=== PATIENT | female | born 1930 | race Caucasian/White ===

== ENCOUNTER 2018-12-25 10:26 | Inpatient (IN) ==
[2018-12-25] MEDS ORDERED: IOPAMIDOL 100 ML BOTTLE IV ONE (10:27)
--- NOTE | 2018-12-25 10:46 | Emergency Department Note ---
Lower Extremity Injury HPI - General Chief Complaint: Extremity Injury, Lower Stated Complaint: pelvic fx, significant pain Time Seen by Provider: 12/25/18 10:27 Source: patient Mode of arrival: wheelchair Limitations: no limitations - History of Present Illness HPI Narrative: This pleasant 88-year-old female was seen yesterday for inability to ambulate due to pain in the right hip and pelvic area. She had fallen the day before. CT reported initially was negative however it turns out that she did have a nondisplaced fracture of the right superior and inferior pubic rami. Today again not able to bear weight so returns to the emergency room for evaluation and/or placement. She comes from [facility]. She will need more intensive care than this level of care. Issues include pain control and therapy. In the emergency room obvious also his need for monitoring with pain medication and stabilization of this with some ice hypoxia. Today she was going from wheelchair to another chair when she was not able to bear weight and was fell without major impact. A nursing or other staff member was helping her at the time and she was able to be "letdown" to some degree not rapidly or severely but did have a mild irritation to her left kneecap. She had gotten herself into the wheelchair by herself and got into the bathroom. She was trying to get from the wheelchair to allow sure when this happened. She t ook her normal medications around 4 AM this morning. REVIEW OF SYSTEMS: No fevers or sweats but some chills. No chest pain No cough Has had little abdominal discomfort. Has nausea off and on. No vomiting. Has some chronic diarrhea. No hematochezia or melena. No dysuria Rare headaches but not now. Some mild lightheadedness. Is on sertraline. - Related Data Home Medications Medication Instructions Recorded Confirmed Omeprazole [PriLOSEC] 20 mg PO ACB 11/03/15 12/25/18 Sertraline [Zoloft] 25 mg PO DAILY 11/03/15 12/25/18 amlodipine 2.5 mg tablet 2.5 mg PO QDAY 10/09/18 12/25/18 apixaban 2.5 mg tablet 2.5 mg PO BID 10/09/18 12/25/18 calcium carbonate 600 mg calcium 1,200 mg PO QDAY tab 10/09/18 12/25/18 (1,500 mg) tablet erythromycin 5 mg/gram (0.5 %) eye 1 applic OPHTHALMIC HS 10/09/18 12/25/18 ointment furosemide 20 mg tablet 20 mg PO QAM 10/09/18 12/25/18 lidocaine 4 % topical patch 1 patch TOPICAL QDAY each 10/09/18 12/25/18 metoprolol succinate ER 50 mg 25 mg PO BID tab 10/09/18 12/25/18 tablet,extended release 24 hr potassium chloride ER 10 mEq 10 meq PO QDAY 10/09/18 12/25/18 tablet,extended release HYDROcodone/APAP 5/325MG [[place] 1 tab PO Q4HP PRN 12/25/18 12/25/18 5-325Mg] Magnesium Hydroxide [Milk of 30 ml PO DAILYP PRN 12/25/18 12/25/18 Magnesia] Melatonin [Melatonin 3Mg Tablet] 3 mg PO HS PRN 12/25/18 12/25/18 Ondansetron HCl [Zofran] 4 mg PO Q4-6H PRN 12/25/18 12/25/18 Polyethylene Glycol 3350 [Miralax] 17 gm PO DAILYP PRN 12/25/18 12/25/18 Vitamin D3 3,000 unit PO DAILY 12/25/18 12/25/18 buPROPion [Wellbutrin Sr] 150 mg PO DAILY 12/25/18 12/25/18 Allergies Allergy/AdvReac Type Severity Reaction Status Date / Time pseudoephedrine Allergy Intermediate Hives Verified 12/25/18 10:28 lansoprazole Allergy Mild HAIR LOSS Verified 12/25/18 10:28 alendronate sodium Allergy Unknown Hives Verified 12/25/18 10:28 ampicillin Allergy Unknown unknown Verified 12/25/18 10:28 fentanyl Allergy Unknown Unknown Verified 12/25/18 10:28 pregabalin Allergy Unknown Unknown Verified 12/25/18 10:28 oxycodone [OXYCODONE] AdvReac Unknown UNKNOWN Verified 12/25/18 10:28 RXN. Past Medical History - Past Medical History [facility] Narrative: Medical History (Last Updated 12/25/18 @ 14:40 by Rafael Neves DO) Chronic anticoagulation (Chronic) History of atrial fibrillation (Chronic) Hypertension (Chronic) Stenosis, spinal, lumbar (Chronic) GERD (gastroesophageal reflux disease) (Chronic) Acute thoracic back pain (Chronic) Hx of compression fracture of spine (Chronic) Nausea (Chronic) Fall (Acute) Right hip pain (Acute) Post-op bleeding (Acute) Irritable bowel syndrome with diarrhea (Chronic) Osteoporosis (Chronic) Past Surgical History (Last Updated 12/25/18 @ 14:41 by Rafael Neves DO) History of hysterectomy for benign disease (Acute) History of facial surgery (Acute) shoulder replacement knee replacement, bilat CTS Inguinal heria repair Family History (Last Updated 12/25/18 @ 14:38 by Rafael Neves DO) Other Colon cancer - Social History smoking status: Never smoker Alcohol use: Reports: None Drug use: Reports: none Physical Exam Limitations: no limitations General appearance: alert, in distress (Only if moving more touch from pressure to the right hip.) Head: atraumatic, normocephalic Eye: Present: normal appearance, EOMI. Absent: scleral icterus, conjunctival injection ENT: normal oropharynx, mucous membranes moist Neck: Present: trachea midline. Absent: lymphadenopathy, thyromegaly Chest: Present: symmetric chest wall rise Respiratory: Present: normal lung sounds bilaterally. Absent: respiratory distress, wheezes, stridor, accessory muscle use, prolonged expiratory phase Cardiovascular: Present: irregular rhythm. Absent: systolic murmur, diastolic murmur Abdominal: Present: soft. Absent: distention, tenderness, guarding, rebound, rigidity, organomegaly, mass Extremities: Present: other (Tenderness around the right lower pelvic area and hip area particularly with movement.). Absent: pedal edema, pretibial edema, calf tenderness Neurological: Present: alert, oriented X3 Psychiatric: Present: normal affect, normal mood Skin: Present: warm, dry Course Vital Signs Blood Pressure 99/65 12/25/18 10:42 Pulse Rate 94 H 12/25/18 11:01 Respiratory Rate 20 12/25/18 14:18 Blood Pressure 144/81 12/25/18 14:18 Pulse Oximetry (%) 94 12/25/18 14:18 Extremity Injury, Lower - Lab Data Lab results reviewed: Yes I reviewed the patient's lab results. Result diagrams: 12/25/18 12:16 12/25/18 12:16 Lab Results 06/17/19 06/17/19 06/17/19 Range/Units 11:35 12:16 12:16 WBC 14.1 H (4.5-11.0) K/mcL RBC 4.45 (4.00-5.20) M/mcL Hgb 13.8 (12.0-15.0) g/dL Hct 42.7 (36.0-48.0) % POC Hct 42.0 (36.0-48.0) % MCV 96.1 (80.0-100.0) fL MCH 31.0 (26.0-34.0) pg MCHC 32.2 (31.0-36.0) g/dL RDW 15.4 H (11.5-14.5) % Plt Count 145 (140-440) K/mcL MPV 10.0 (7.4-10.4) fL Gran % 86.6 H (38.0-78.0) % Lymph % (Auto) 6.2 L (15.5-49.0) % Granite % (Auto) 5.2 (1.0-12.0) % Eos % (Auto) 1.7 (0.0-7.0) % Baso % (Auto) 0.3 (0.0-2.0) % Gran # 12.2 H (1.8-8.0) K/mcL Lymph # (Auto) 0.9 L (1.5-4.8) K/mcL Granite # (Auto) 0.7 (0.1-0.9) K/mcL Eos # (Auto) 0.2 (0.0-0.7) K/mcL Baso # (Auto) 0 (0.0-0.3) K/mcL Band Neutrophils % D-Dimer (0.00-0.40) ug/ml POC Sodium 137 (133-145) mmol/L Sodium 138 (133-145) mmol/L POC Potassium 4.5 (3.3-5.1) mmol/L Potassium 4.8 (3.3-5.1) mmol/L POC Chloride 102 (96-108) mmol/L Chloride 101 (96-108) mmol/L Carbon Dioxide 18 L (22-30) mmol/L POC Total CO2 24 (22-30) mmol/L Anion Gap 19.0 H (8-16) POC BUN 23 (8-23) mg/dl BUN 17 (8-23) mg/dl Creatinine 1.2 H (0.6-1.1) mg/dl POC Creatinine 1.1 (0.6-1.1) mg/dl GFR Calculation 40 Glucose 145 H (70-105) mg/dL POC Glucose 146 H (70-105) mg/dL Calcium 9.0 (8.6-10.4) mg/dl POC WB Ioniz Calcium 1.01 L (1.16-1.32) mmol/L Total Bilirubin 1.3 H (0.0-1.0) mg/dL AST 31 (0-37) U/l ALT 16 (0-40) U/l Alkaline Phosphatase 88 (39-117) U/L Total Protein 6.6 (5.9-8.4) gm/dL Albumin 3.6 (3.2-5.2) gm/dL Globulin 3.0 (2.2-3.7) gm/dL Albumin/Globulin Ratio 1.2 (1.0-2.3) 12/25/18 12/25/18 Range/Units 13:40 14:26 WBC (4.5-11.0) K/mcL RBC (4.00-5.20) M/mcL Hgb (12.0-15.0) g/dL Hct (36.0-48.0) % POC Hct (36.0-48.0) % MCV (80.0-100.0) fL MCH (26.0-34.0) pg MCHC (31.0-36.0) g/dL RDW (11.5-14.5) % Plt Count (140-440) K/mcL MPV (7.4-10.4) fL Gran % (38.0-78.0) % Lymph % (Auto) (15.5-49.0) % Granite % (Auto) (1.0-12.0) % Eos % (Auto) (0.0-7.0) % Baso % (Auto) (0.0-2.0) % Gran # (1.8-8.0) K/mcL Lymph # (Auto) (1.5-4.8) K/mcL Granite # (Auto) (0.1-0.9) K/mcL Eos # (Auto) (0.0-0.7) K/mcL Baso # (Auto) (0.0-0.3) K/mcL Band Neutrophils % Not Reportable D-Dimer 9.39 H (0.00-0.40) ug/ml POC Sodium (133-145) mmol/L Sodium (133-145) mmol/L POC Potassium (3.3-5.1) mmol/L Potassium (3.3-5.1) mmol/L POC Chloride (96-108) mmol/L Chloride (96-108) mmol/L Carbon Dioxide (22-30) mmol/L POC Total CO2 (22-30) mmol/L Anion Gap (8-16) POC BUN (8-23) mg/dl BUN (8-23) mg/dl Creatinine (0.6-1.1) mg/dl POC Creatinine (0.6-1.1) mg/dl GFR Calculation Glucose (70-105) mg/dL POC Glucose (70-105) mg/dL Calcium (8.6-10.4) mg/dl POC WB Ioniz Calcium (1.16-1.32) mmol/L Total Bilirubin (0.0-1.0) mg/dL AST (0-37) U/l ALT (0-40) U/l Alkaline Phosphatase (39-117) U/L Total Protein (5.9-8.4) gm/dL Albumin (3.2-5.2) gm/dL Globulin (2.2-3.7) gm/dL Albumin/Globulin Ratio (1.0-2.3) - Radiology Data Radiology results reviewed: Yes I reviewed the patient's radiology results. - EKG Data EKG results narrative: No acute coronary syndrome findings. Similar to previous with atrial fibrillation. This ECG will be read by a lap winding machine operator. Disposition Pt seen by [facility]/PA only: No Clinical Impression: Hypoxia, Irritable bowel syndrome with diarrhea Pelvic fracture Qualifiers: Encounter type: subsequent encounter Pelvic bone location: pubis Sublocation of pubis: unspecified portion of pubis Fracture type: closed Laterality: right Fracture healing: with routine healing Qualified Code(s): S32.501D - Unspecified fracture of right pubis, subsequent encounter for fracture with routine healing Atrial fibrillation Qualifiers: Atrial fibrillation type: chronic Qualified Code(s): I48.2 - Chronic atrial fibrillation Summary: See history above. In summary, needs admission for pain control, treatment and/or stabilization of her medication regimen especially in light of hypoxia and narcotic need because of pelvic fracture, as well as placement in a facility that can care for her and help her in rehabilitation in preparation for return to her apartment more independently. 2:35 PM - spoke with Dr. Leigh, hospitalist, who kindly accepts this patient for above. Disposition: Xfer As Outpt/Obs ([facility]) Condition: Fair Referrals: Oren Neely MD [Primary Care Provider] -
[2018-12-25 11:45] LABS: POC Blood Urea Nitrogen 23 mg/dl (8-23); POC CO2 24 mmol/L (22-30); POC Calcium, Ionized 1.01 mmol/L (1.16-1.32); POC Chloride 102 mmol/L (96-108); POC Creatinine 1.1 mg/dl (0.6-1.1); POC Glucose, Random 146 mg/dL (70-105); POC Potassium 4.5 mmol/L (3.3-5.1); POC Sodium 137 mmol/L (133-145)
[2018-12-25] MEDS ORDERED: 0.9 % SODIUM CHLORIDE 1,000 ML IV ONE (12:00)
--- NOTE | 2018-12-25 12:42 | XRay Report ---
HISTORY: Pelvic fractures and fell again FINDINGS: There are stable nondisplaced fractures of the right superior ischial ramus and right inferior pubic ramus. There is also deformity of the left pubic bone which may be an old healed fracture. The bones are osteoporotic. SI joints appear normal. There are postoperative changes following spinal fusion at L5-S1 using bone graft material and metal screws and plates. Comparison with the pelvic CT scan performed on 12/24/18 shows no change. The hip joints appear normal and symmetric, without evidence of a fracture or arthritis. IMPRESSION: Stable fractures involving the right-sided ischial and pubic rami and left pubic bone Interpreted and Authenticated by: Cecil Kiran 12/25/18
[2018-12-25 12:45] LABS: Basophils # (Auto) 0 K/mcL (0.0-0.3); Basophils % (Auto) 0.3 % (0.0-2.0); Eosinophils # (Auto) 0.2 K/mcL (0.0-0.7); Eosinophils % (Auto) 1.7 % (0.0-7.0); Granulocytes % (Auto) 86.6 % (38.0-78.0); Hematocrit 42.7 % (36.0-48.0); Hemoglobin 13.8 g/dL (12.0-15.0); Lymphocytes # (Auto) 0.9 K/mcL (1.5-4.8); Lymphocytes % (Auto) 6.2 % (15.5-49.0); Mean Cell Volume 96.1 fL (80.0-100.0); Mean Corpuscular HGB Conc 32.2 g/dL (31.0-36.0); Monocytes # (Auto) 0.7 K/mcL (0.1-0.9); Monocytes % (Auto) 5.2 % (1.0-12.0); Platelet Count 145 K/mcL (140-440); RBC 4.45 M/mcL (4.00-5.20); Red Cell Distribution Width 15.4 % (11.5-14.5); WBC 14.1 K/mcL (4.5-11.0)
[2018-12-25 12:57] LABS: ALT/SGPT 16 U/l (0-40); AST/SGOT 31 U/l (0-37); Albumin 3.6 gm/dL (3.2-5.2); Albumin/Globulin Ratio 1.2 (1.0-2.3); Alkaline Phosphatase 88 U/L (39-117); Bilirubin,Total 1.3 mg/dL (0.0-1.0); Blood Urea Nitrogen 17 mg/dl (8-23); Carbon Dioxide 18 mmol/L (22-30); Chloride 101 mmol/L (96-108); Glomerular Filtration Rate 40; Glucose 145 mg/dL (70-105); Potassium 4.8 mmol/L (3.3-5.1); Sodium 138 mmol/L (133-145)
--- NOTE | 2018-12-25 13:00 | XRay Report ---
HISTORY: Hypoxia FINDINGS: The lungs are clear and well expanded. The heart is mildly enlarged but magnified by AP technique. There is no congestive heart failure or pleural effusion. There is cement in several thoracic vertebra following prior kyphoplasty' s. 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 No prior study is available for comparison. IMPRESSION: Borderline cardiomegaly and no acute abnormality Interpreted and Authenticated by: Cecil Kiran 12/25/18
--- NOTE | 2018-12-25 15:08 | Internal Med History&Physical ---
Medical - H&P: HPI Patient information: Note initiated : 12/25/18 at 3:03 pm Service Date, if different from initiated Date: [] Patient: Nenita Dee a 88 y/o F admitted on for pelvic fx, significant pain. Chief Complaint: [] History of present illness: Ms. Dee is a 88 year old F Who presents from assisted living facility for another fall generalized weakness. Patient originally fell 2 days ago. She was walking to her chair in her room and she suddenly fell. She does not recall what happened whether not she tripped or lost balance. She is no reported loss of consciousness. She did hit her head apparently. 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 She has tremendous amount of bruising on her left side because of procedure. In the ED she had imaging done including CT head and pelvis. CT head was unremarkable pelvis showed nondisplaced fractures through the right superior p ubic ramus in the mid right inferior. She was sent home with a follow-up to see orthopedic surgery. However she fell again this morning. Had a pelvic x-ray which showed stable fractures. She is also noted to be hypoxic. ABG on 4 L with a PaO2 of 79. I put her on room air and 1 of her fingers showed a sat of 85 but the other hand showed sats of 89. Placed on 2 L and she sat at 93%. She denies any coughing or upper respiratory tract infection, denies shortness of breath. Denies fever chills or dysuria. She did have an episode of diarrhea, C. difficile negative in the ER. Family states she has intermittent diarrhea is common for her. Patient unable to care for herself and needs really have as well as evaluation of her hypoxia. She does have a leukocytosis as well this can be reactive but infectious work-up not completed yet. Urinalysis pending Review of Systems: Pertinent positives as above. Denies headache/fever/chills/nausea/vomiting/chest or abdominal pain/cough/dyspnea. 10 point review of system reviewed negative Medical - H&P: PMH Medical history: Medical History (Last Updated 12/25/18 @ 14:40 by Rafael Neves DO) Chronic anticoagulation (Chronic) History of atrial fibrillation (Chronic) Hypertension (Chronic) Stenosis, spinal, lumbar (Chronic) GERD (gastroesophageal reflux disease) (Chronic) Acute thoracic back pain (Chronic) Hx of compression fracture of spine (Chronic) Nausea (Chronic) Fall (Acute) Right hip pain (Acute) Post-op bleeding (Acute) Irritable bowel syndrome with diarrhea (Chronic) Osteoporosis (Chronic) Past Surgical History (Last Updated 12/25/18 @ 14:41 by Rafael Neves DO) History of hysterectomy for benign disease (Acute) History of facial surgery (Acute) Family History (Last Updated 12/25/18 @ 14:38 by Rafael Neves DO) Other Colon cancer Mother hypertension Father diabetes Social History (Last Updated 10/10/18 @ 09:34 by Lorraine Malave DO) Patient resides at assisted living facility at [facility] Drinks alcohol rarely Ablates with a walker Denies tobacco use Medical - H&P: Meds Home Medications Medication Instructions Recorded Confirmed Type Omeprazole [PriLOSEC] 20 mg PO ACB 11/03/15 12/25/18 History Sertraline [Zoloft] 25 mg PO DAILY 11/03/15 12/25/18 History amlodipine 2.5 mg tablet 2.5 mg PO QDAY 10/09/18 12/25/18 History apixaban 2.5 mg tablet 2.5 mg PO BID 10/09/18 12/25/18 History calcium carbonate 600 mg calcium 1,200 mg PO QDAY tab 10/09/18 12/25/18 History (1,500 mg) tablet erythromycin 5 mg/gram (0.5 %) eye 1 applic OPHTHALMIC HS 10/09/18 12/25/18 History ointment furosemide 20 mg tablet 20 mg PO QAM 10/09/18 12/25/18 History lidocaine 4 % topical patch 1 patch TOPICAL QDAY each 10/09/18 12/25/18 History metoprolol succinate ER 50 mg 25 mg PO BID tab 10/09/18 12/25/18 History tablet,extended release 24 hr potassium chloride ER 10 mEq 10 meq PO QDAY 10/09/18 12/25/18 History tablet,extended release HYDROcodone/APAP 5/325MG [[place] 1 tab PO Q4HP PRN 12/25/18 12/25/18 History 5-325Mg] Magnesium Hydroxide [Milk of 30 ml PO DAILYP PRN 12/25/18 12/25/18 History Magnesia] Melatonin [Melatonin 3Mg Tablet] 3 mg PO HS PRN 12/25/18 12/25/18 History Ondansetron HCl [Zofran] 4 mg PO Q4-6H PRN 12/25/18 12/25/18 History Polyethylene Glycol 3350 [Miralax] 17 gm PO DAILYP PRN 12/25/18 12/25/18 History Vitamin D3 3,000 unit PO DAILY 12/25/18 12/25/18 History buPROPion [Wellbutrin Sr] 150 mg PO DAILY 12/25/18 12/25/18 History Allergies Allergy/AdvReac Type Severity Reaction Status Date / Time pseudoephedrine Allergy Intermediate Hives Verified 12/25/18 10:28 lansoprazole Allergy Mild HAIR LOSS Verified 12/25/18 10:28 alendronate sodium Allergy Unknown Hives Verified 12/25/18 10:28 ampicillin Allergy Unknown unknown Verified 12/25/18 10:28 fentanyl Allergy Unknown Unknown Verified 12/25/18 10:28 pregabalin Allergy Unknown Unknown Verified 12/25/18 10:28 oxycodone [OXYCODONE] AdvReac Unknown UNKNOWN Verified 12/25/18 10:28 RXN. Medical - H&P: Exam - Constitutional Vitals: Pulse Resp BP Pulse Ox 94 H 20 144/81 94 12/25/18 11:01 12/25/18 14:18 12/25/18 14:18 12/25/18 14:18 Exam: General: Alert, Awake, No acute Distress Eyes/N/T: EOMI, PEERL, DMM Head/Neck: neck supple, significant bruising of lower left face from procedure, surgical incision stitches right side of face and her ear CV: Irregular irregular, No murmurs, normal s1/s2 Pulm: Clear b/l, no wheezing/rhonchi/rales Abd: soft, nontender, +BS x4 Ext: no clubbing/cyanosis/edema Neuro: Alert, no focal deficits, moves all extremities, CN 2-12 grossly intact, sensations intact b/l upper/lower Skin: warm/dry Medical - H&P: Reslt - Labs CBC & Chem 7: 12/25/18 12:16 12/25/18 12:16 Labs: Short CBC 12/25/18 Range/Units 12:16 WBC 14.1 H (4.5-11.0) K/mcL Hgb 13.8 (12.0-15.0) g/dL Hct 42.7 (36.0-48.0) % Plt Count 145 (140-440) K/mcL BMP 12/25/18 12:16 Sodium 138 Potassium 4.8 Chloride 101 Carbon Dioxide 18 L BUN 17 Creatinine 1.2 H Glucose 145 H Calcium 9.0 Liver Function 12/25/18 Range/Units 12:16 Total Bilirubin 1.3 H (0.0-1.0) mg/dL AST 31 (0-37) U/l ALT 16 (0-40) U/l Alkaline Phosphatase 88 (39-117) U/L Albumin 3.6 (3.2-5.2) gm/dL - Impressions Chest x-ray unremarkable Medical - H&P: A/P - Narrative A/P Narrative: A: *Pelvic fracture, nondisplaced: Ground-level fall *Generalized weakness/deconditioning/debility: *Hypoxia: Suspect atelectasis +/- narcotics -CT pending *CKD III: *AFib: on BB and apixaban *HTN: CCB/BB *chronic LBP: Follows with Dr. Peterson and *Depression: *GERD *on lasix for peripheral edema: only started 4 mos ago * P: -CT chest pending -IS, prn nebs -check UA and manual differential -pain control -PT/OT - - -Case management for placement -ppx: Eliquis/home PPI No Code
[2018-12-25 15:27] LABS: Band Neutrophils % 1 % (0-10); Eosinophils % (Manual) 1 % (0-7); Lymphocytes % 7 % (15-49); Monocytes % (Manual) 11 % (1-12); Platelet Estimate NORMAL (NORMAL); RBC Morphology NORMAL (NORMAL); Segmented Neutrophils % 80 % (38-78)
--- NOTE | 2018-12-25 16:02 | Cat Scan Report ---
CLINICAL INFORMATION: Hypoxia and elevated serum d-dimer COMPARISON: None TECHNIQUE: Axial images obtained through the chest. Intravenous contrast administration was administered, and scanning was performed during pulmonary arterial phase. Sagittally and coronally reformatted images were obtained. MIP reformatted images. Radiation exposure was limited using dose reduction technology. FINDINGS: Within the proximal portion of pulmonary artery supplying the lingula there is nonocclusive small organized thrombus. It measures approximately 1.5 cm in length and 3 to 4 mm in thickness. There is no evidence of acute pulmonary embolus. The main pulmonary artery is normal in caliber. Right ventricle is not abnormally dilated. Patient does have underlying generalized cardiomegaly. Minor atelectasis is present posteriorly in both lung bases. There is also bronchial wall thickening is some of the second and third order branches in the left lung. Some of the basilar segments of the left lower lobe there is mucus plugging causing short segment bronchial occlusions. No pulmonary mass is seen. There is no lobar consolidation. Tiny bilateral layering pleural effusions are present. There are couple reactive lymph nodes in the pretracheal retrocaval space and mediastinum. Patient has severe osteoporosis and kyphosis. There are numerous compression fractures. Most severe compression fractures at T6. This is unchanged since prior thoracic MRI done on 08/31/18. A moderate wedge compression fractures present at T7. Kyphoplasties have been performed at T9 T11 and T12. There is another moderate compression fracture involving superior endplate of T10. The kyphoplasty's have been performed since the prior thoracic MRI. The T7 fracture is new and the T10 fracture has become worse. There is a 1.2 cm low-attenuation nodule in the right lobe of the thyroid. This could be an adenoma or colloid cyst. IMPRESSION: Small organized thrombus in the lingula. No evidence of acute pulmonary emboli Inflammatory airway disease with bronchial wall thickening and focal areas of mucus plugging. There is associated mild atelectasis in the basilar segments Numerous compression fractures in the thoracic spine. Some of these have become worse since 08/31/18 Interpreted and Authenticated by: Cecil Kiran 12/25/18
[2018-12-25 16:46] LABS: Appearance,Urine CLOUDY; Bacteria,Urine 0 /hpf (0); Bilirubin,Urine NEG (NEG); Color,Urine YELLOW; Culture Indicated,Urine YES; Glucose,Urine (UA) NEGATIVE (NEG); Ketones,Urine NEG (NEG); Leukocyte Esterase,Urine 25 /uL (NEG); Mucus,Urine MANY /hpf (0); Nitrate,Urine NEG (NEG); Protein,Urine 30 mg/dL (NEG); Specific Gravity,Urine 1.031 (1.000-1.035); Urine Blood 0.03 mg/dL (<0.03); Urine Budding Yeast MANY /hpf (0); Urine Hyaline Cast 37 /lpf (0-2); Urine RBC 0 /hpf (0-1); Urine Squamous Epithelial Cell 1 /hpf (0-4); Urine WBC 4 /hpf (0-4)
[2018-12-25] MEDS ORDERED: IPRATROPIUM/ALBUTEROL 3 ML AMPUL.NEB NEB PRN (16:59)
[2018-12-25] MEDS ORDERED: LOPERAMIDE 2 MG CAPSULE PO PRN (16:59)
[2018-12-25] MEDS ORDERED: IPRATROPIUM/ALBUTEROL 3 ML AMPUL.NEB NEB SCH (16:59)
[2018-12-25] MEDS ORDERED: PROCHLORPERAZINE 10 MG/2 ML VIAL IV PRN (16:59)
[2018-12-25] MEDS ORDERED: MAGNESIUM HYDROXIDE 30 ML ORAL.SUSP PO PRN (16:59)
[2018-12-25] MEDS ORDERED: POLYETHYLENE GLYCOL 3350 17 GM PACKET PO PRN (16:59)
[2018-12-25] MEDS ORDERED: ACETAMINOPHEN 325 MG TABLET PO PRN (16:59)
[2018-12-25] MEDS ORDERED: 0.9 % SODIUM CHLORIDE 1,000 ML IV SCH (16:59)
[2018-12-25] MEDS ORDERED: ONDANSETRON 4 MG/2 ML VIAL IV PRN (16:59)
[2018-12-25] MEDS: HYDROcodone/APAP 5/325MG TABLET PO PRN ×2 (18:15→22:54)
[2018-12-25] MEDS: APIXABAN 2.5 MG TABLET PO SCH (19:55)
[2018-12-25] MEDS: METOPROLOL SUCCINATE 25 MG TAB.XL.24H PO SCH (19:56)
[2018-12-25] MEDS: ERYTHROMYCIN OPHTH OINT 3.5GM TUBE OU SCH (19:56)
[2018-12-25] MEDS ORDERED: MELATONIN 3 MG TABLET PO PRN (21:00)
[2018-12-26] MEDS: 0.9 % SODIUM CHLORIDE 10 ML SYRINGE IV SCH ×4 (00:18→20:58)
[2018-12-26 05:41] LABS: Basophils # (Auto) 0.1 K/mcL (0.0-0.3); Basophils % (Auto) 0.5 % (0.0-2.0); Eosinophils # (Auto) 0.7 K/mcL (0.0-0.7); Eosinophils % (Auto) 6.9 % (0.0-7.0); Hematocrit 38.3 % (36.0-48.0); Hemoglobin 12.3 g/dL (12.0-15.0); Lymphocytes # (Auto) 1.2 K/mcL (1.5-4.8); Lymphocytes % (Auto) 11.5 % (15.5-49.0); Mean Cell Volume 97.5 fL (80.0-100.0); Mean Platelet Volume 10.8 fL (7.4-10.4); Monocytes # (Auto) 0.6 K/mcL (0.1-0.9); Monocytes % (Auto) 6.1 % (1.0-12.0); Platelet Count 126 K/mcL (140-440); RBC 3.93 M/mcL (4.00-5.20); WBC 10.3 K/mcL (4.5-11.0)
[2018-12-26 06:03] LABS: ALT/SGPT 18 U/l (0-40); AST/SGOT 21 U/l (0-37); Albumin 3.4 gm/dL (3.2-5.2); Albumin/Globulin Ratio 1.3 (1.0-2.3); Alkaline Phosphatase 83 U/L (39-117); Bilirubin,Direct 0.3 mg/dL (0.0-0.3); Blood Urea Nitrogen 18 mg/dl (8-23); Calcium 8.7 mg/dl (8.6-10.4); Carbon Dioxide 23 mmol/L (22-30); Chloride 102 mmol/L (96-108); Globulin 2.6 gm/dL (2.2-3.7); Glomerular Filtration Rate 65; Glucose 120 mg/dL (70-105); Lactate Dehydrogenase 241 U/L (94-250); Magnesium 1.8 mg/dL (1.6-2.5); Phosphorous 3.4 mg/dL (2.7-4.5); Sodium 139 mmol/L (133-145); Triglycerides 96 mg/dl (<150); Uric Acid 4.6 mg/dL (2.5-8.0)
[2018-12-26] MEDS ORDERED: methylPREDNISolone SOD SUCC 125 MG/2 ML VIAL IV ONE (07:11)
--- NOTE | 2018-12-26 07:12 | Internal Med Progress Note ---
Medical - PN: Subj Patient information: Note initiated : 12/26/18 at 7:05 am Service Date, if different from initiated Date: [] Patient: Nenita Dee a 88 y/o F admitted on 12/25/18 for pelvic fx, significant pain. Chief Complaint: [] Interval history: Ms. Dee is a 88 year old F Who presents from assisted living facility for another fall generalized weakness. Patient originally fell 2 days ago. She was walking to her chair in her room and she suddenly fell. She does not recall what happened whether not s he tripped or lost balance. She is no reported loss of consciousness. She did hit her head apparently. 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 She has tremendous amount of bruising on her left side because of procedure. In the ED she had imaging done including CT head and pelvis. CT head was unremarkable pelvis showed nondisplaced fractures through the right superior pu bic ramus in the mid right inferior. She was sent home with a follow-up to see orthopedic surgery. However she fell again this morning. Had a pelvic x-ray which showed stable fractures. She is also noted to be hypoxic. ABG on 4 L with a PaO2 of 79. I put her on room air and 1 of her fingers showed a sat of 85 but the other hand showed sats of 89. Placed on 2 L and she sat at 93%. She denies any coughing or upper respiratory tract infection, denies shortness of breath. Denies fever chills or dysuria. She did have an episode of diarrhea, C. difficile negative in the ER. Family states she has intermittent diarrhea is common for her. Patient unable to care for herself and needs really have as well as evaluation of her hypoxia. She does have a leukocytosis as well this can be reactive but infectious work-up not completed yet. Urinalysis pending 12/25 Slept okay, feeling a little better. No overnight events. Currently on 1 L nasal cannula. Some nausea this morning but otherwise no new complaints. Review of Systems: denies headache/fever/chills/vomiting/chest or abdominal pain/cough/dyspnea/diarrhea. Otherwise see above. - Constitutional Vitals: Vital Signs Temp Pulse Resp BP Pulse Ox 98.3 F 91 H 12 142/90 91 12/25/18 23:51 12/25/18 23:51 12/26/18 03:11 12/26/18 03:11 12/26/18 03:11 Period Temp Pulse Resp BP Sys/García Pulse Ox Last 24 Hr 98.2 F-99.5 F 91-104 12-22 99-154/58-98 87-97 Intake and Output 12/25/18 12/26/18 12/26/18 21:59 05:59 13:59 Intake Total 1560 100 Output Total 375 Balance 1560 -275 Weight 67.132 kg Intake & Output: Intake & Output 12/25/18 12/26/18 12/26/18 21:59 05:59 13:59 Intake Total 1560 100 Output Total 375 Balance 1560 -275 Weight 67.132 kg Intake: IV 1000 Sodium Chloride 0.9% 1,000 ml @ 1000 Wide Open IV BOLUS ONE Rx#: [id number] Oral 560 100 Output: Urine Catheter Amount 375 Other: Meal Dinner Percent of Meal Consumed 50% Feeding Ability Independent Urine Appearance Clear Uretheral ([place]) Clear Urine Color Dark Yellow Uretheral ([place]ell) Bright Yellow Exam: General: Alert, Awake, No acute Distress Eyes/N/T: EOMI, Head/Neck: neck supple, significant bruising of lower left face from procedure, surgical incision stitches right side of face and her ear CV: Irregular irregular, No murmurs, Pulm: Clear b/l, no wheezing/rhonchi/rales Abd: soft, nontender, +BS x4 Ext: no clubbing/cyanosis/edema Neuro: Alert, no focal deficits, moves all extremities, Skin: warm/dry Medical - PN: Obj Da - Labs CBC & Chem 7: 12/26/18 03:57 12/26/18 03:57 Labs: Abnormal Lab Results 12/26/18 12/26/18 12/25/18 03:57 03:57 16:00 WBC RBC 3.93 L RDW 16.0 H Plt Count 126 L MPV 10.8 H Gran % Lymph % (Auto) 11.5 L Gran # Lymph # (Auto) 1.2 L Seg Neutrophils % Lymphocytes % D-Dimer Carbon Dioxide Anion Gap Creatinine Glucose 120 H POC Glucose POC WB Ioniz Calcium Total Bilirubin Urine Protein 30 A Urine Occult Blood 0.03 A Urine Urobilinogen 2.0 A Ur Leukocyte Esterase 25 A Hyaline Casts 37 H Urine Mucus Many A Urine Yeast (Budding) Many A 12/25/18 12/25/18 12/25/18 14:26 13:40 12:16 WBC RBC RDW Plt Count MPV Gran % Lymph % (Auto) Gran # Lymph # (Auto) Seg Neutrophils % 80 H Lymphocytes % 7 L D-Dimer 9.39 H Carbon Dioxide 18 L Anion Gap 19.0 H Creatinine 1.2 H Glucose 145 H POC Glucose POC WB Ioniz Calcium Total Bilirubin 1.3 H Urine Protein Urine Occult Blood Urine Urobilinogen Ur Leukocyte Esterase Hyaline Casts Urine Mucus Urine Yeast (Budding) 12/25/18 12/25/18 12:16 11:35 WBC 14.1 H RBC RDW 15.4 H Plt Count MPV Gran % 86.6 H Lymph % (Auto) 6.2 L Gran # 12.2 H Lymph # (Auto) 0.9 L Seg Neutrophils % Lymphocytes % D-Dimer Carbon Dioxide Anion Gap Creatinine Glucose POC Glucose 146 H POC WB Ioniz Calcium 1.01 L Total Bilirubin Urine Protein Urine Occult Blood Urine Urobilinogen Ur Leukocyte Esterase Hyaline Casts Urine Mucus Urine Yeast (Budding) Meds: Medications Acetaminophen (Tylenol) 650 mg PO Q6HP PRN PRN Reason: PAIN/FEVER > 101 Hydrocodone Bitart/Acetaminophen ([place] 5/325mg) 1 tab PO Q4HP PRN PRN Reason: Pain Last Admin: 12/25/18 22:54 Dose: 1 tab Documented by: Albuterol/Ipratropium (Duoneb) 3 ml NEB Q4HRT PRN PRN Reason: Bronchospasm Albuterol/Ipratropium (Duoneb) 3 ml NEB Q6HP KENDRA Amlodipine Besylate (Norvasc) 2.5 mg PO QDAY [facility] Apixaban (Eliquis) 2.5 mg PO BID [facility] Last Admin: 12/25/18 19:55 Dose: 2.5 mg Documented by: Bupropion HCl (Wellbutrin Xl) 150 mg PO DAILY [facility] Calcium Carbonate/Glycine (Tums) 1,000 mg CHEWED DAILY [facility] Erythromycin (Ilotycin Ophth Oint) 1 ribbon OU HS [facility] Last Admin: 12/25/18 19:56 Dose: Not Given Documented by: Sodium Chloride (Sodium Chloride 0.9%) 1,000 mls @ 70 mls/hr IV .[id number] [facility] Stop: 12/26/18 07:16 Last Admin: 12/25/18 17:22 Dose: 70 mls/hr Documented by: Lidocaine (Lidoderm) 1 patch TOPICAL DAILY@1000 KENDRA Loperamide HCl (Imodium) 2 mg PO PRN PRN PRN Reason: Diarrhea Magnesium Hydroxide (Milk Of Magnesia) 30 ml PO DAILYP PRN PRN Reason: Constipation Melatonin (Melatonin 3mg Tablet) 3 mg PO HSP PRN PRN Reason: Insomnia Metoprolol Succinate (Toprol Xl) 25 mg PO BID [facility] Last Admin: 12/25/18 19:56 Dose: 25 mg Documented by: Omeprazole (Prilosec) 20 mg PO ACB [facility] Ondansetron HCl (Zofran) 4 mg IV Q6HP PRN PRN Reason: Nausea And Vomiting Polyethylene Glycol (Miralax) 17 gm PO DAILYP PRN PRN Reason: Constipation Prochlorperazine (Compazine) 5 mg IV Q4HP PRN PRN Reason: Nausea And Vomiting Sertraline HCl (Zoloft) 25 mg PO DAILY [facility] Sodium Chloride (Saline Flush) 10 ml IV Q8 [facility] Last Admin: 12/26/18 05:04 Dose: Not Given Documented by: Vitamin D (Vitamin D3) 3,000 unit PO DAILY [facility] Medical - PN: A/P - Time Spent With Patient Total time spent is greater than 50% in coordination of care (as documented) at patient's floor/unit and/or counseling patient: - Narrative A/P Narrative: A: *Pelvic fracture, nondisplaced: Ground-level fall *Generalized weakness/deconditioning/debility/Falls: *Acute hypoxic resp failure: atelectasis/bronchitis +/- narcotics. sats originally mid to upper 80's on RA in ED -CT no acute PE, bronchitis and atelectasis noted -now on 1L NC *CKD III: *AFib: on BB and apixaban *HTN: CCB/BB *chronic LBP: Follows with Dr. Mitchell *Depression: *GERD *on lasix for peripheral edema: only started 4 mos ago * P: -IS/acapella, Nebs -wean off O2 -pain control -PT/OT -ambulate -hold lasix for now -wound care -Case management for placement -ppx: Eliquis/home PPI No Code Medical - PN: Qual - VTE Deep Vein Thrombosis/Pulmonary Embolism Present on Admission: No
[2018-12-26] MEDS: OMEPRAZOLE 20 MG CAPSULE PO SCH (08:04)
[2018-12-26] MEDS: VITAMIN D3 1,000 UNIT TABLET PO SCH (08:51)
[2018-12-26] MEDS: CALCIUM CARBONATE 500 MG TAB.CHEW CHEWED SCH (08:52)
[2018-12-26] MEDS: buPROPion 150 MG TAB.XL.24H PO SCH (08:52)
[2018-12-26] MEDS: SERTRALINE 50 MG TABLET PO SCH (08:52)
[2018-12-26] MEDS: amLODIPine 5 MG TABLET PO SCH (08:52)
[2018-12-26] MEDS: METOPROLOL SUCCINATE 25 MG TAB.XL.24H PO SCH ×2 (08:52→20:59)
[2018-12-26] MEDS: APIXABAN 2.5 MG TABLET PO SCH ×2 (08:52→20:59)
[2018-12-26] MEDS: HYDROcodone/APAP 5/325MG TABLET PO PRN ×3 (08:53→17:44)
[2018-12-26] MEDS: LIDOCAINE PATCH TOPICAL SCH (09:29)
[2018-12-26] MEDS: cefTRIAXone 1 GM VIAL IV SCH (12:45)
[2018-12-26] MEDS: MUPIROCIN OINT 2% 22GM TOPICAL SCH ×2 (14:25→21:01)
--- NOTE | 2018-12-26 19:18 | General Surgery Progress Note ---
Subjective Narrative: Note initiated : 12/26/18 at 7:12 pm Service Date, if different from initiated Date: [] Patient: Nenita Dee 88 y/o F admitted on 12/25/18 for pelvic fx, significant pain. Chief Complaint: [] Patient seen along with [facility] director nurse, earlier this afternoon. CC: Consulted for wound of left face skin and subcutaneous tissue with extensive dermal ecchymoses, and thin adherent blood clots along the sutures. There is NO visual, ENT abnormalities and her airway and digestive tract appear patent and non symptomatic. History is significant for office biopsy of pigmented lesion of Left face by Dr. Neely, in physician's office. This was malignant melanoma. Subsequently , underwent wide local reexcision by Dr. BOONE, Quantitative Software Engineer. Notes / pathology results awaited. Objective Temp Pulse Resp BP Pulse Ox 98.6 F 88 14 117/81 94 12/26/18 16:00 12/26/18 16:00 12/26/18 16:00 12/26/18 16:00 12/26/18 16:00 - Additional Data Intake & Output - Last 24 hours: Intake & Output 12/24/18 12/25/18 12/26/18 12/27/18 05:59 05:59 05:59 05:59 Intake Total 1660 2220 Output Total 375 301 Balance 1285 1919 Weight 148 lb 148 lb - General physical appearance no distress, no pain, chronically ill - Eyes PERRL, normal ocular movement - ENT normal pinna, normal nares, normal mucosa, no hearing loss, no congestion, other (RESOLVING POST PROCEDURE ECCHYMOSES . Dressing CDI. ) - Neck no masses, no bruits, other (Contiguous bruising from Left face improving. ) - Cardiovascular Cardiovascular exam: Present: irregular rhythm - Abdomen soft - Integumentary other (AAO . Lucid. Conversing with her son in the room. NO focal neuro deficit. ) - Neurologic other (As Above) - Musculoskeletal other (Bed confined. ) - Labs 12/26/18 03:57 12/27/18 12:27 Diabetes panel 12/26/18 Range/Units 03:57 Sodium 139 (133-145) mmol/L Potassium 4.0 (3.3-5.1) mmol/L Chloride 102 (96-108) mmol/L Carbon Dioxide 23 (22-30) mmol/L BUN 18 (8-23) mg/dl Creatinine 0.8 (0.6-1.1) mg/dl Glucose 120 H (70-105) mg/dL Calcium 8.7 (8.6-10.4) mg/dl AST 21 (0-37) U/l ALT 18 (0-40) U/l Alkaline Phosphatase 83 (39-117) U/L Total Protein 6.0 (5.9-8.4) gm/dL Albumin 3.4 (3.2-5.2) gm/dL Triglycerides 96 (<150) mg/dl Calcium panel 12/26/18 Range/Units 03:57 Calcium 8.7 (8.6-10.4) mg/dl Phosphorus 3.4 (2.7-4.5) mg/dL Albumin 3.4 (3.2-5.2) gm/dL Pituitary panel 12/26/18 Range/Units 03:57 Sodium 139 (133-145) mmol/L Potassium 4.0 (3.3-5.1) mmol/L Chloride 102 (96-108) mmol/L Carbon Dioxide 23 (22-30) mmol/L BUN 18 (8-23) mg/dl Creatinine 0.8 (0.6-1.1) mg/dl Glucose 120 H (70-105) mg/dL Calcium 8.7 (8.6-10.4) mg/dl Adrenal panel 12/26/18 Range/Units 03:57 Sodium 139 (133-145) mmol/L Potassium 4.0 (3.3-5.1) mmol/L Chloride 102 (96-108) mmol/L Carbon Dioxide 23 (22-30) mmol/L BUN 18 (8-23) mg/dl Creatinine 0.8 (0.6-1.1) mg/dl Glucose 120 H (70-105) mg/dL Calcium 8.7 (8.6-10.4) mg/dl Total Bilirubin 1.0 (0.0-1.0) mg/dL AST 21 (0-37) U/l ALT 18 (0-40) U/l Alkaline Phosphatase 83 (39-117) U/L Total Protein 6.0 (5.9-8.4) gm/dL Albumin 3.4 (3.2-5.2) gm/dL Assessment and Plan - Narrative A/P Narrative: Assessment: Post procedure ecchymoses Left face and contiguous upper neck. IMPROVING. Reviewed Hospitalist Physician Dr. Regan's note Reg. Right chest wall and shoulder pain. Plan" Will continue to follow from wound care and Skin point of view. - Time Spent With Patient Total time spent is greater than 50% in coordination of care (as documented) at patient's floor/unit and/or counseling patient: 15 - 24 minutes
[2018-12-26] MEDS: ERYTHROMYCIN OPHTH OINT 3.5GM TUBE OU SCH (21:01)
[2018-12-27] MEDS: HYDROcodone/APAP 5/325MG TABLET PO PRN ×4 (00:13→17:37)
--- NOTE | 2018-12-27 06:40 | Internal Med Progress Note ---
Medical - PN: Subj Patient information: Note initiated : 12/27/18 at 6:37 am Service Date, if different from initiated Date: [] Patient: Nenita Dee a 88 y/o F admitted on 12/25/18 for pelvic fx, significant pain. Chief Complaint: [] Interval history: Ms. Dee is a 88 year old F Who presents from assisted living facility for another fall generalized weakness. Patient originally fell 2 days ago. She was walking to her chair in her room and she suddenly fell. She does not recall what happened whether not s he tripped or lost balance. She is no reported loss of consciousness. She did hit her head apparently. 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 She has tremendous amount of bruising on her left side because of procedure. In the ED she had imaging done including CT head and pelvis. CT head was unremarkable pelvis showed nondisplaced fractures through the right superior pu bic ramus in the mid right inferior. She was sent home with a follow-up to see orthopedic surgery. However she fell again this morning. Had a pelvic x-ray which showed stable fractures. She is also noted to be hypoxic. ABG on 4 L with a PaO2 of 79. I put her on room air and 1 of her fingers showed a sat of 85 but the other hand showed sats of 89. Placed on 2 L and she sat at 93%. She denies any coughing or upper respiratory tract infection, denies shortness of breath. Denies fever chills or dysuria. She did have an episode of diarrhea, C. difficile negative in the ER. Family states she has intermittent diarrhea is common for her. Patient unable to care for herself and needs really have as well as evaluation of her hypoxia. She does have a leukocytosis as well this can be reactive but infectious work-up not completed yet. Urinalysis pending 12/26 Slept okay, feeling a little better. No overnight events. Currently on 1 L nasal cannula. Some nausea this morning but otherwise no new complaints. 12/27 Says she feels little bit stronger today or is sitting up eating breakfast no overnight events doing well. Placed on room air this morning. Review of Systems: denies headache/fever/chills/vomiting/chest or abdominal pain/cough/dyspnea/diarrhea. Otherwise see above. - Constitutional Vitals: Vital Signs Temp Pulse Resp BP Pulse Ox 97.6 F 94 H 12 134/79 94 12/27/18 04:17 12/27/18 04:17 12/27/18 04:17 12/27/18 04:17 12/27/18 04:17 Period Temp Pulse Resp BP Sys/García Pulse Ox Last 24 Hr 96.8 F-98.6 F 88-96 12-14 117-159/79-94 93-97 Intake and Output 12/26/18 12/27/18 12/27/18 21:59 05:59 13:59 Intake Total 2220 200 Output Total 101 160 Balance 2119 40 Weight 66.678 kg Intake & Output: Intake & Output 12/26/18 12/27/18 12/27/18 21:59 05:59 13:59 Intake Total 2220 200 Output Total 101 160 Balance 2119 40 Weight 66.678 kg Intake: IV 1000 Oral 1220 200 Output: Void Amount 100 160 # of times incontinent of urine 1 Other: Meal Dinner Percent of Meal Consumed 100% Urine Appearance Cloudy Urine Color Bright Yellow Exam: General: Alert, Awake, No acute Distress Eyes/N/T: EOMI, Head/Neck: neck supple, significant bruising of lower left face from procedure, surgical incision stitches right side of face and her ear intact CV: Irregular irregular, No murmurs, Pulm: Clear b/l, no wheezing/rhonchi/rales Abd: soft, nontender, +BS x4 Ext: no clubbing/cyanosis/edema Neuro: Alert, no focal deficits, moves all extremities, Skin: warm/dry Medical - PN: Obj Da - Labs CBC & Chem 7: 12/26/18 03:57 12/26/18 03:57 Labs: Abnormal Lab Results 12/26/18 12/26/18 12/25/18 03:57 03:57 16:00 WBC RBC 3.93 L RDW 16.0 H Plt Count 126 L MPV 10.8 H Gran % Lymph % (Auto) 11.5 L Gran # Lymph # (Auto) 1.2 L Seg Neutrophils % Lymphocytes % D-Dimer Carbon Dioxide Anion Gap Creatinine Glucose 120 H POC Glucose POC WB Ioniz Calcium Total Bilirubin Urine Protein 30 A Urine Occult Blood 0.03 A Urine Urobilinogen 2.0 A Ur Leukocyte Esterase 25 A Hyaline Casts 37 H Urine Mucus Many A Urine Yeast (Budding) Many A 12/25/18 12/25/18 12/25/18 14:26 13:40 12:16 WBC RBC RDW Plt Count MPV Gran % Lymph % (Auto) Gran # Lymph # (Auto) Seg Neutrophils % 80 H Lymphocytes % 7 L D-Dimer 9.39 H Carbon Dioxide 18 L Anion Gap 19.0 H Creatinine 1.2 H Glucose 145 H POC Glucose POC WB Ioniz Calcium Total Bilirubin 1.3 H Urine Protein Urine Occult Blood Urine Urobilinogen Ur Leukocyte Esterase Hyaline Casts Urine Mucus Urine Yeast (Budding) 12/25/18 12/25/18 12:16 11:35 WBC 14.1 H RBC RDW 15.4 H Plt Count MPV Gran % 86.6 H Lymph % (Auto) 6.2 L Gran # 12.2 H Lymph # (Auto) 0.9 L Seg Neutrophils % Lymphocytes % D-Dimer Carbon Dioxide Anion Gap Creatinine Glucose POC Glucose 146 H POC WB Ioniz Calcium 1.01 L Total Bilirubin Urine Protein Urine Occult Blood Urine Urobilinogen Ur Leukocyte Esterase Hyaline Casts Urine Mucus Urine Yeast (Budding) Meds: Medications Acetaminophen (Tylenol) 650 mg PO Q6HP PRN PRN Reason: PAIN/FEVER > 101 Hydrocodone Bitart/Acetaminophen ([place] 5/325mg) 1 tab PO Q4HP PRN PRN Reason: Pain Last Admin: 12/27/18 00:13 Dose: 1 tab Documented by: Albuterol/Ipratropium (Duoneb) 3 ml NEB Q4HRT PRN PRN Reason: Bronchospasm Albuterol/Ipratropium (Duoneb) 3 ml NEB Q6HP KENDRA Amlodipine Besylate (Norvasc) 2.5 mg PO QDAY [facility] Last Admin: 12/26/18 08:52 Dose: 2.5 mg Documented by: Apixaban (Eliquis) 2.5 mg PO BID [facility] Last Admin: 12/26/18 20:59 Dose: 2.5 mg Documented by: Bupropion HCl (Wellbutrin Xl) 150 mg PO DAILY [facility] Last Admin: 12/26/18 08:52 Dose: 150 mg Documented by: Calcium Carbonate/Glycine (Tums) 1,000 mg CHEWED DAILY [facility] Last Admin: 12/26/18 08:52 Dose: 1,000 mg Documented by: Ceftriaxone Sodium (Rocephin) 1 gm IV Q24H [facility]; Protocol Last Admin: 12/26/18 12:45 Dose: 1 gm Documented by: Erythromycin (Ilotycin Ophth Oint) 1 ribbon OU HS [facility] Last Admin: 12/26/18 21:01 Dose: Not Given Documented by: Lidocaine (Lidoderm) 1 patch TOPICAL DAILY@1000 [facility] Last Admin: 12/26/18 09:29 Dose: 1 patch Documented by: Loperamide HCl (Imodium) 2 mg PO PRN PRN PRN Reason: Diarrhea Magnesium Hydroxide (Milk Of Magnesia) 30 ml PO DAILYP PRN PRN Reason: Constipation Melatonin (Melatonin 3mg Tablet) 3 mg PO HSP PRN PRN Reason: Insomnia Metoprolol Succinate (Toprol Xl) 25 mg PO BID [facility] Last Admin: 12/26/18 20:59 Dose: 25 mg Documented by: Mupirocin (Bactroban Oint 2%) 1 dose TOPICAL BID [facility] Last Admin: 12/26/18 21:01 Dose: 1 dose Documented by: Omeprazole (Prilosec) 20 mg PO ACB [facility] Last Admin: 12/26/18 08:04 Dose: 20 mg Documented by: Ondansetron HCl (Zofran) 4 mg IV Q6HP PRN PRN Reason: Nausea And Vomiting Polyethylene Glycol (Miralax) 17 gm PO DAILYP PRN PRN Reason: Constipation Prednisone (Prednisone) 40 mg PO [facility] Prochlorperazine (Compazine) 5 mg IV Q4HP PRN PRN Reason: Nausea And Vomiting Sertraline HCl (Zoloft) 25 mg PO DAILY [facility] Last Admin: 12/26/18 08:52 Dose: 25 mg Documented by: Sodium Chloride (Saline Flush) 10 ml IV Q8 [facility] Last Admin: 12/26/18 20:58 Dose: 10 ml Documented by: Vitamin D (Vitamin D3) 3,000 unit PO DAILY [facility] Last Admin: 12/26/18 08:51 Dose: 3,000 unit Documented by: Medical - PN: A/P - Time Spent With Patient Total time spent is greater than 50% in coordination of care (as documented) at patient's floor/unit and/or counseling patient: - Narrative A/P Narrative: A: *Pelvic fracture, nondisplaced: Ground-level fall *Generalized weakness/deconditioning/debility/Falls: *Acute hypoxic resp failure: atelectasis/bronchitis +/- narcotics. sats ethel ginally mid to upper 80's on RA in ED -CT no acute PE, bronchitis and atelectasis noted -Some room air this morning *Bronchitis: improved *CKD III: *AFib: on BB and apixaban *HTN: CCB/BB *chronic LBP: Follows with Dr. Mitchell *Depression: *GERD *on lasix for peripheral edema: only started 4 mos ago, she says she feels she doesn't need it * P: -IS/acapella, Nebs -pain control -PT/OT -ambulate -hold lasix for now -wound care -Case management for placement -f/u with ortho outpt -ppx: Eliquis/home PPI No Code Medical - PN: Qual - VTE Deep Vein Thrombosis/Pulmonary Embolism Present on Admission: No
[2018-12-27] MEDS: 0.9 % SODIUM CHLORIDE 10 ML SYRINGE IV SCH ×3 (07:34→20:10)
[2018-12-27] MEDS: OMEPRAZOLE 20 MG CAPSULE PO SCH (07:34)
[2018-12-27] MEDS: SERTRALINE 50 MG TABLET PO SCH (09:51)
[2018-12-27] MEDS: buPROPion 150 MG TAB.XL.24H PO SCH (09:53)
[2018-12-27] MEDS: METOPROLOL SUCCINATE 25 MG TAB.XL.24H PO SCH ×2 (09:53→20:09)
[2018-12-27] MEDS: amLODIPine 5 MG TABLET PO SCH (09:54)
[2018-12-27] MEDS: APIXABAN 2.5 MG TABLET PO SCH ×2 (09:57→20:09)
[2018-12-27] MEDS: predniSONE 20 MG TABLET PO SCH (09:58)
[2018-12-27] MEDS: CALCIUM CARBONATE 500 MG TAB.CHEW CHEWED SCH (09:58)
[2018-12-27] MEDS: LIDOCAINE PATCH TOPICAL SCH (09:59)
[2018-12-27] MEDS: cefTRIAXone 1 GM VIAL IV SCH (10:02)
[2018-12-27] MEDS: MUPIROCIN OINT 2% 22GM TOPICAL SCH ×2 (11:10→20:10)
--- NOTE | 2018-12-27 12:29 | Event Note ---
Called in to evaluate pt for chest pain, Patient in bed, comfortable Chest pain on the right side, then noted was in the right shoulder sharp in nature, radiating from right side of chest to righ shoulder, NO shortness of breath or palpitations. pt is on eliquis for Afib Vital signs stable Chest clear to auscultation. Has deformity on the right shoulder region, CVS irregular rhythm, systolic murmr, early diastolic murmur. EKG shows afib, no new changes from admission ekg Chest x ray ordered, shoulder x ray given h/op fall, get cmp, troponin and myoglobin. Doubt if cardiac, pt as resolving without intervention, will monitor for now, hold off on asa for nwo given on eliquis, and low suspicion for cardiac nature.
[2018-12-27 13:22] LABS: ALT/SGPT 16 U/l (0-40); AST/SGOT 21 U/l (0-37); Albumin 3.3 gm/dL (3.2-5.2); Albumin/Globulin Ratio 1.2 (1.0-2.3); Alkaline Phosphatase 86 U/L (39-117); Bilirubin,Total 0.5 mg/dL (0.0-1.0); Blood Urea Nitrogen 20 mg/dl (8-23); Calcium 9.3 mg/dl (8.6-10.4); Carbon Dioxide 26 mmol/L (22-30); Chloride 101 mmol/L (96-108); Globulin 2.7 gm/dL (2.2-3.7); Glomerular Filtration Rate 65; Glucose 103 mg/dL (70-105); Myoglobin 47 ng/ml (25-58); Potassium 4.2 mmol/L (3.3-5.1); Sodium 141 mmol/L (133-145)
[2018-12-27] MEDS: VITAMIN D3 1,000 UNIT TABLET PO SCH (13:43)
--- NOTE | 2018-12-27 13:51 | XRay Report ---
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 There is no fracture or reabsorption of bone around the hardware.. Medial to the prosthetic humeral head there is a well-circumscribed 6 x 10 mm heterotopic calcification with sclerotic borders. No donor site is seen. This was not seen on the immediate postoperative x-ray done in 2009. There are compression fractures in the mid and lower thoracic spine and the patient has had prior kyphoplasty. IMPRESSION: Small heterotopic calcification in the soft tissues along the medial side of the joint. The shoulder is otherwise normal. Interpreted and Authenticated by: Cecil Kiran 12/27/18
--- NOTE | 2018-12-27 13:53 | XRay Report ---
HISTORY: Chest pain FINDINGS: The heart is moderately enlarged. No congestive heart failure is present. The lungs are clear. No pleural effusion is present. A moderate amount calcified plaque is present in the aortic arch. The spine has a dextroscoliotic curvature. Multiple old compression fractures are present in the mid and lower thoracic spine. These are unchanged from the chest CT done on 12/25/18. 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 IMPRESSION: Stable cardiomegaly without congestive heart failure No acute pulmonary disease Interpreted and Authenticated by: Cecil Kiran 12/27/18
[2018-12-27] MEDS: ERYTHROMYCIN OPHTH OINT 3.5GM TUBE OU SCH (20:10)
[2018-12-28] MEDS: HYDROcodone/APAP 5/325MG TABLET PO PRN ×2 (03:03→11:05)
[2018-12-28] MEDS: 0.9 % SODIUM CHLORIDE 10 ML SYRINGE IV SCH (05:03)
[2018-12-28] MEDS ORDERED: CEPHALEXIN 250 MG CAPSULE PO SCH (09:00)
[2018-12-28] MEDS: OMEPRAZOLE 20 MG CAPSULE PO SCH (10:12)
[2018-12-28] MEDS: amLODIPine 5 MG TABLET PO SCH (10:12)
[2018-12-28] MEDS: METOPROLOL SUCCINATE 25 MG TAB.XL.24H PO SCH (10:13)
[2018-12-28] MEDS: APIXABAN 2.5 MG TABLET PO SCH (10:14)
[2018-12-28] MEDS: buPROPion 150 MG TAB.XL.24H PO SCH (10:14)
[2018-12-28] MEDS: VITAMIN D3 1,000 UNIT TABLET PO SCH (10:14)
[2018-12-28] MEDS: MUPIROCIN OINT 2% 22GM TOPICAL SCH (10:15)
[2018-12-28] MEDS: predniSONE 20 MG TABLET PO SCH (10:15)
[2018-12-28] MEDS: SERTRALINE 50 MG TABLET PO SCH (10:15)
[2018-12-28] MEDS: CALCIUM CARBONATE 500 MG TAB.CHEW CHEWED SCH (10:15)
[2018-12-28] MEDS: LIDOCAINE PATCH TOPICAL SCH (10:17)
--- NOTE | 2018-12-28 10:28 | Discharge Summary ---
Medical - DS: Prov Patient information: Note initiated : 12/28/18 at 10:15 am Service Date, if different from initiated Date: [] Patient: Nenita Dee 88 y/o F admitted on 12/25/18 for pelvic fx, significant pain. Chief Complaint: [] Date of admission: 12/25/18 16:31 Discharge date: 12/28/18 Primary care physician: Oren Neely Consults: 12/25/18 14:25 Consult to Physician [CONS] Stat Comment: Consulting Provider: John Argueta Reason For Exam: Physician to Consult Discharging clinician: Jose Manuel Regan Medical - DS: Meds - Discharge Medications Prescriptions: Cephalexin [Keflex] 500 mg PO BID #20 cap HYDROcodone/APAP 5/325MG [[place] 5-325Mg] 1 tab PO Q4HP PRN #40 tab PRN Reason: Pain predniSONE [Prednisone] 40 mg PO QAMCC #4 tab Active and Home Medications: Home Medications Omeprazole [PriLOSEC] 20 mg PO ACB 11/03/15 [History Confirmed 12/25/18 Last Taken 11/02/15] Sertraline [Zoloft] 25 mg PO DAILY 11/03/15 [History Confirmed 12/25/18 Last Taken 11/03/15] amlodipine 2.5 mg tablet 2.5 mg PO QDAY 10/09/18 [History Confirmed 12/25/18 Last Taken Unknown] apixaban 2.5 mg tablet 2.5 mg PO BID 10/09/18 [History Confirmed 12/25/18 Last Taken Unknown] calcium carbonate 600 mg calcium (1,500 mg) tablet 1,200 mg PO QDAY tab 10/09/18 [History Confirmed 12/25/18 Last Taken Unknown] erythromycin 5 mg/gram (0.5 %) eye ointment 1 applic OPHTHALMIC HS 10/09/18 [History Confirmed 12/25/18 Last Taken Unknown] furosemide 20 mg tablet 20 mg PO QAM 10/09/18 [History Confirmed 12/25/18 Last Taken Unknown] lidocaine 4 % topical patch 1 patch TOPICAL QDAY each 10/09/18 [History Confirmed 12/25/18 Last Taken Unknown] metoprolol succinate ER 50 mg tablet,extended release 24 hr 25 mg PO BID tab 10/09/18 [History Confirmed 12/25/18 Last Taken Unknown] potassium chloride ER 10 mEq tablet,extended release 10 meq PO QDAY 10/09/18 [History Confirmed 12/25/18 Last Taken Unknown] HYDROcodone/APAP 5/325MG [[place] 5-325Mg] 1 tab PO Q4HP PRN 12/25/18 [History Confirmed 12/25/18 Last Taken 12/25/18 08:30 5/325mg] Magnesium Hydroxide [Milk of Magnesia] 30 ml PO DAILYP PRN 12/25/18 [History Confirmed 12/25/18 Last Taken Unknown] Melatonin [Melatonin 3Mg Tablet] 3 mg PO HS PRN 12/25/18 [History Confirmed 12/25/18 Last Taken Unknown] Ondansetron HCl [Zofran] 4 mg PO Q4-6H PRN 12/25/18 [History Confirmed 12/25/18 Last Taken Unknown] Polyethylene Glycol 3350 [Miralax] 17 gm PO DAILYP PRN 12/25/18 [History Confirmed 12/25/18 Last Taken Unknown] Vitamin D3 3,000 unit PO DAILY 12/25/18 [History Confirmed 12/25/18 Last Taken Unknown] buPROPion [Wellbutrin Xl] 150 mg PO DAILY 12/25/18 [History Confirmed 12/25/18 Last Taken Unknown] Medical - DS: Hosp Hospital course: Ms. Dee is a 88 year old F Who presents from assisted living facility for another fall generalized weakness. Patient originally fell 2 days ago. She was walking to her chair in her room and she suddenly fell. She does not recall what happened whether not she tripped or lost balance. She is no reported loss of consciousness. She did hit her head apparently. 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 She has tremendous amount of bruising on her left side because of procedure. In the ED she had imaging done including CT head and pelvis. CT head was unremarkable pelvis showed nondisplaced fractures through the right superior pubic ramus in the mid right inferior. She was sent home with a follow-up to see orthopedic surgery. However she fell again this morning. Had a pelvic x-ray which showed stable fractures. She is also noted to be hypoxic. ABG on 4 L with a PaO2 of 79. I put her on room air and 1 of her fingers showed a sat of 85 but the other hand showed sats of 89. Placed on 2 L and she sat at 93%. She denies any coughing or upper respiratory tract infection, denies shortness of breath. Denies fever chills or dysuria. She did have an episode of diarrhea, C. difficile negative in the ER. Family states she has intermittent diarrhea is common for her. Patient unable to care for herself and needs really have as well as evaluation of her hypoxia. She does have a leukocytosis as well this can be reactive but infectious work-up not completed yet. Urinalysis pending 12/26 Slept okay, feeling a little better. No overnight events. Currently on 1 L nasal cannula. Some nausea this morning but otherwise no new complaints. 12/27 Says she feels little bit stronger today or is sitting up eating breakfast no overnight events doing well. Placed on room air this morning. 12/28 Patient seen and examined, no new complaints or concerns, feels much better. Denies any chest pain shortness of breath cough or any urinary complaints. She did have chest pain yesterday, EKG was negative troponins x2 was negative. Patient is stable for discharge will be discharged to a rehab center. In summary Pelvic fracture nondisplaced-pain control achieved patient to continue rehab at [facility]. Hypoxic respiratory failure due to atelectasis and bronchitis-responded to pulmonary toilet and antibiotic treatment with some steroids. Patient is back to room air at the time of discharge UTI on Keflex A. fib-rate is stable patient is on Eliquis for CVA prophylaxis No changes made to patient's chronic home medication list, I am not making changes to her Lasix or potassium replacement regimens she can follow-up with her regular provider if she wants to make any changes Discharge diagnosis: Pelvic Fracture - Time Spent with Patient Total time spent providing and/or coordinating discharge services: Greater than 30 minutes Medical - DS: Exam - Constitutional Vitals: Vital Signs Temp Pulse Resp BP BP Pulse Ox 12/28/18 08:00 97 H 12/28/18 07:32 96.8 F L 16 169/87 96 12/28/18 07:24 96 12/28/18 03:13 97.9 F 97 H 16 166/88 96 12/27/18 22:59 97.8 F 89 14 140/99 96 12/27/18 20:00 14 96 12/27/18 18:43 97.8 F 94 H 14 117/74 94 12/27/18 15:56 97.7 F 91 H 16 128/78 94 12/27/18 12:45 92 H 129/72 94 12/27/18 12:40 90 146/85 12/27/18 12:35 79 111/60 12/27/18 12:25 126 H 125/72 12/27/18 12:10 115/73 12/27/18 12:00 98.3 F 92 H 16 115/73 90 Intake and Output 12/27/18 12/28/18 12/28/18 21:59 05:59 13:59 Intake Total 390 300 240 Output Total 200 450 250 Balance 190 -150 -10 Intake: Oral 240 300 240 GI Tube Flush 150 Output: Void Amount 200 450 250 Other: Meal Dinner Breakfast Percent of Meal Consumed 100% 95 Feeding Ability Independent Urine Appearance Clear Clear Urine Color Dark Yellow Bright Yellow Urine Odor Normal Normal Weight 148 lb 8 oz Additional comments: Constitutional; Afebrile, cooperative, alert, not in distress. Respiratory system: Air Entry equal on both sides, No crackles or wheezing, no rhonchi. CVS- Rate rhythm regular, S1,S2 heard, no gallop, no rub. Abdomen- Soft nontender abdomen, no organomegaly, no tenderness, no guarding or rigidity, LENS EXAMINER- AOOx3, moving all extremities, no gross focal deficit noted. Medical - DS: Data Labs on day of discharge: Labs from last 24 hours 12/27/18 12/27/18 12/27/18 17:58 12:27 12:27 Sodium 141 Potassium 4.2 Chloride 101 Carbon Dioxide 26 Anion Gap 14.0 BUN 20 Creatinine 0.8 GFR Calculation 65 Glucose 103 Calcium 9.3 Total Bilirubin 0.5 AST 21 ALT 16 Alkaline Phosphatase 86 Myoglobin 47 Troponin T < 0.01 < 0.01 Total Protein 6.0 Albumin 3.3 Globulin 2.7 Albumin/Globulin Ratio 1.2 Preliminary micro results at discharge 12/25/18 10:54 Stool Culture - Preliminary Rectum Medical - DS: A/P - Patient/Caregiver Discharge Instructions Activity: as per physical therapy, increase activity as tolerated Diet: Low Sodium (2gm), Cardiac Additional Instructions: Follow up with PCP in 1 week Follow up with wound care as directed Go to the emergency room if worsening symptoms, chest pain shortness of breath or any other acute concern Take medications as prescribed Prednisone to be taken with food, for another 2 days. Keflex 500 mg twice a day for another 5 days - Follow up Plan Follow up with: John Argueta MD [Physician] - (follow up at wound clinic 1 week as new patient, please call and scheduled. ) Oren Neely MD [Primary Care Provider] - (Please call and schedule hospital follow up.) Disposition: Xfer SNF Prognosis: Fair Rehab Potential: Fair I certify that the patient requires SNF services: Yes Overall status at discharge: patient is progressing back to baseline Medical - DS: Qual - VTE Deep Vein Thrombosis/Pulmonary Embolism Present on Admission: No
== END 2018-12-28 13:00 | DRG 536 ==
LOC: ED 10:26 → MEDSUR 16:31
PROVIDERS: ADMIT Internal Medicine; ATTEND Internal Medicine